=== PATIENT | male | born 1965 | race Caucasian/White ===

== ENCOUNTER 2016-09-26 09:34 | Day surgery (SDC) | payer BC ==
[2016-09-23 13:40] VITALS: BMI 39.5
[~2016-09-26 09:34] MED LIST: LACTATED RINGERS 1,000 ML IV ONE; LIDOCAINE 1% 20 ML VIAL (10MG/ML) FOR IV START INTRADERMA PRN
[2016-09-26 10:35] VITALS: RESP 16; TEMP 97.1
[2016-09-26] MEDS ORDERED: LIDOCAINE 1% 20 ML VIAL (10MG/ML) FOR IV START INTRADERMA ONE (10:47)
[2016-09-26] MEDS ORDERED: PROPOFOL 10 MG/ML 20 ML VIAL IV ONE (11:04)
--- NOTE | 2016-09-26 11:39 | P.PCN ---
Date of Procedure: 09/26/16 Procedure(s) Performed: Procedure: Total colonoscopy. Preoperative diagnosis: Screening for neoplasia. Postoperative diagnosis: Sigmoid diverticulosis with no evidence of acute diverticulitis, strictures, polyps or cancer. Preparation: HalfLytely prep. Sedation: Was provided by anesthesia. Brief clinical history: The patient is a 51-year-old male who is referred for this evaluation for screening for neoplasia. He had a prior exam 12 years ago so. At this time, he has no abdominal complaints, bleeding or anemia. No family history of colon cancer. Procedure: With the patient on his left lateral decubitus position and after informed consent and adequate sedation, the perianal area was inspected and it did not show any fissures or fistulas. There were no masses felt on digital rectal examination. The Olympus CFQ 160L video colonoscope was then inserted in the rectum in the usual fashion and advanced to the cecum. There were multiple diverticular orifices seen scattered in the sigmoid but I saw no evidence of acute diverticulitis or strictures. No polyps or tumors were seen. The mucosa appeared healthy. I retroflexed endoscope in the rectum before the endoscope was withdrawn. The patient tolerated the procedure well. Plan: The patient was reassured discussed dietary measures. I recommended a repeat exam in 10 years. He will follow up with you as planned.
[2016-09-26 11:58] VITALS: BP 120/79; PULSE 76
== END 2016-09-26 12:28 | disposition home or self-care (01) ==
LOC: ORWHC2ENDO 09:34
DX: Z12.11 Encounter for screening for malignant neoplasm of colon (principal); K57.30 Diverticulosis of large intestine without perforation or abscess without bleeding; I25.10 Atherosclerotic heart disease of native coronary artery without angina pectoris; I10 Essential (primary) hypertension; E78.5 Hyperlipidemia, unspecified; Z79.899 Other long term (current) drug therapy
CPT/HCPCS: J2704; G0121; 99153

== ENCOUNTER 2017-01-03 10:48 | Day surgery (SDC) | payer BC ==
[2017-01-02 09:46] VITALS: BMI 40.2
[~2017-01-03 10:48] MED LIST changes: -LACTATED RINGERS 1,000 ML IV ONE; +LACTATED RINGERS 1,000 ML IV SCH
[2017-01-03 11:31] VITALS: TEMP 98
[2017-01-03] MEDS ORDERED: LIDOCAINE 1% 20 ML VIAL (10MG/ML) FOR IV START INTRADERMA ONE (11:43)
[2017-01-03] MEDS ORDERED: PROPOFOL 10 MG/ML 20 ML VIAL IV ONE (12:42)
[2017-01-03] MEDS ORDERED: KETAMINE 10 MG/ML 20 ML VIAL ONE (12:42)
[2017-01-03] MEDS ORDERED: LIDOCAINE 1% INJ 10MG/ML (20 ML MDV) ONE (12:42)
[2017-01-03] MEDS ORDERED: GLYCOPYRROLATE 0.2 MG/ML 2 ML VIAL ONE (12:42)
--- NOTE | 2017-01-03 13:19 | P.PCN ---
Date of Procedure: 01/03/17 Procedure(s) Performed: Procedure: Esophagogastroduodenoscopy and biopsy. Preoperative diagnosis: Epigastric pain and reflux. Postoperative diagnosis: Mild antral gastritis. Preparation and sedation: Was provided by anesthesia. Brief clinical history: The patient is a 51-year-old male was referred for this evaluation for epigastric pain and reflux symptoms that he has had over the last year more so within the last few months without complete response to medical therapy. This evaluation is to assess for peptic ulcer disease, complicated reflux disease or other pathology. Procedure: With the patient on his left lateral decubitus position and after informed consent and adequate sedation, I passed the Olympus-GIF 160 video upper endoscope through the cricopharyngeus down the esophagus. GE junction was around 42-43 cm from the incisors and there was no definite hiatal hernia. No obvious esophagitis or complicated reflux disease. The endoscope was then passed into the stomach which was insufflated with air and inspected in detail including the retroflex view in the cardia. There was some mottling and erythema in the antrum but no ulcers or erosions. Pyloric channel, duodenal bulb, post bulbar area and descending duodenum appeared within normal limits. I obtained multiple biopsies from the duodenum, antrum and esophagus then the endoscope was withdrawn. The patient tolerated the procedure well. Plan: The patient was reassured. Will await pathology results. He will follow up with you as planned and I will be happy to see in the office if his symptoms persist.
[2017-01-03 13:27] VITALS: BP 110/71; PULSE 56; RESP 18
== END 2017-01-03 14:02 | disposition home or self-care (01) ==
LOC: ORWHC2ENDO 10:48
DX: K29.50 Unspecified chronic gastritis without bleeding (principal); K21.0 Gastro-esophageal reflux disease with esophagitis; I25.10 Atherosclerotic heart disease of native coronary artery without angina pectoris; I10 Essential (primary) hypertension; E78.5 Hyperlipidemia, unspecified; Z79.82 Long term (current) use of aspirin; Z79.899 Other long term (current) drug therapy
CPT/HCPCS: 88305; 88342; 43239; J2001; J2704

== ENCOUNTER → 2018-10-01 | Outpatient (CLI) | payer BC ==
--- NOTE | 2018-10-01 16:36 | XR ---
EXAMINATION TYPE: XR lumbosacral spine min 5 views, XR sacrum coccyx 3 views DATE OF EXAM: 10/01/2018 COMPARISON: NONE HISTORY: 53-year-old male low back pain with left leg radiculopathy FINDINGS: 5 lumbar type vertebral bodies. No pars interarticularis defect. Mild to moderate endplate spondylosi s upper lumbar spine. Mild multilevel facet arthropathy. Vertebral body heights are preserved and ali gnment is maintained. Slight bony irregularity just above the distal coccygeal segments. No angulation or displacement frac ture is identified. SI joints appear symmetric and intact. Small delineation to the arcuate lines of the sacrum. IMPRESSION: 1. Lumbar spine: Mild to moderate endplate spondylosis upper lumbar spine. Mild facet arthropathy. No vertebral compression collapse or malalignment. 2. Sacrum and coccyx: Cortical irregularity just above the last couple coccygeal segments could repre sent an age indeterminate nondisplaced tailbone fracture. Clinically correlate.
== END | disposition home or self-care (01) ==
LOC: RADXRYALE 14:27
PROVIDERS: ATTEND Nurse Practitioner
DX: M47.26 Other spondylosis with radiculopathy, lumbar region (principal); M46.96 Unspecified inflammatory spondylopathy, lumbar region; R93.7 Abnormal findings on diagnostic imaging of other parts of musculoskeletal system
CPT/HCPCS: 72110; 72220

== ENCOUNTER → 2018-11-06 | Outpatient (CLI) | payer BC ==
--- NOTE | 2018-11-06 10:39 | US ---
EXAMINATION TYPE: US abdomen complete DATE OF EXAM: 11/06/2018 COMPARISON: NONE CLINICAL HISTORY: R10.12 Left upper quadrant pain. Left side pain, NPO, no previous surgeries EXAM MEASUREMENTS: Liver Length: 18.0 cm Gallbladder Wall: 0.3 cm CHD: 0.4 cm Spleen: 10.1 cm Right Kidney: 11.2 x 5.7 x 5.5 cm Left Kidney: 10.7 x 4.6 x 6.1 cm Limited/suboptimal visualization due to patient body habitus and overlying bowel gas Pancreas: Obscured by bowel gas Liver: Heterogenous. Limited visualization. Gallbladder: No stones seen Evidence for sonographic Burt's sign: neg CBD: Obscured by overlying bowel gas CHD: wnl Spleen: wnl Right Kidney: No hydronephrosis or masses seen, limited visualization Left Kidney: No hydronephrosis or masses seen, limited visualization, lower pole not well seen Upper IVC: wnl Abd Aorta: No AAA visualized The visualized liver is heterogeneous. Evaluation for focal masses suboptimal due to the heterogeneit y. The intrahepatic portion of the IVC and visualized abdominal aorta are within normal limits. Ther e is no evidence of cholelithiasis. Common bile duct is unremarkable. The visualized portions of th e pancreas are slightly heterogeneous. Portions of pancreas are secured by overlying bowel gas on deangelo ges saved. The spleen is unremarkable. Kidneys are symmetric and free of hydronephrosis. No renal l esions are seen. IMPRESSION: Suboptimal study without suspicious finding seen to account for patient's symptoms of lef t upper quadrant pain.
== END | disposition home or self-care (01) ==
LOC: RADUSWWP 07:20
PROVIDERS: ATTEND Family Medicine
DX: R10.12 Left upper quadrant pain (principal)
CPT/HCPCS: 76700

== ENCOUNTER → 2019-05-20 | Outpatient (CLI) | payer BC ==
--- NOTE | 2019-05-20 09:08 | FL ---
EXAMINATION TYPE: FL barium swallow DATE OF EXAM: 05/20/2019 CLINICAL HISTORY: Trouble swallowing last 3-4 months. Increasing dysphasia and lower esophageal level per patient. Some improvement on reflux medications. TECHNIQUE: A double contrast esophagram is performed utilizing air and barium. A total of 24 second s of fluoroscopic time was utilized during procedure. 43 spot images are saved to PACS. COMPARISON: None FINDINGS: The esophagus shows normal motility and emptying into the stomach. No evidence of divertic ulum, intraluminal mass, or stricture noted. Small sliding-type hiatal hernia noted towards the end o f study. No significant gastroesophageal reflux was seen during real time performance of this study. IMPRESSION: Small sliding-type hiatal hernia. No suspicious mass or stricture.
--- NOTE | 2019-05-20 15:33 | US ---
EXAMINATION TYPE: US abdomen complete DATE OF EXAM: 05/20/2019 COMPARISON: Complete abdominal ultrasound November 06, 2018 CLINICAL HISTORY: R10.13 Epigastric Pain. Pain EXAM MEASUREMENTS: Liver Length: 19.5 cm Gallbladder Wall: 0.3 cm CBD: 0.3 cm Spleen: 10.2 cm Right Kidney: 10.0 x 4.5 x 4.5 cm Left Kidney: 9.2 x 5.0 x 4.4 cm Exam limitations due to body habitus. Pancreas: Obscured by bowel gas Liver: Increased attenuation Gallbladder: No stones seen Evidence for sonographic Burt's sign: No CBD: wnl Spleen: wnl Right Kidney: wnl Left Kidney: wnl Upper IVC: wnl Abd Aorta: Limited The visualized liver is heterogeneously hyperechoic similar to prior. Findings consistent with diffu se fatty infiltration. The intrahepatic portion of the IVC and visualized abdominal aorta are within normal limits. There is no evidence of shadowing mobile cholelithiasis. Common bile duct is unremar kable. The pancreas is suboptimally seen on initial images saved due to shadowing from overlying bow el gas. The spleen is unremarkable. Kidneys are symmetric and free of hydronephrosis. No renal les ions are seen. IMPRESSION: Diffuse fatty infiltration of liver redemonstrated. Suboptimal study without new or acute findings seen to account for patient's symptoms of epigastric pain.
== END | disposition home or self-care (01) ==
LOC: RADUSWWP 07:33
PROVIDERS: ATTEND Family Medicine
DX: K76.0 Fatty (change of) liver, not elsewhere classified (principal); K44.9 Diaphragmatic hernia without obstruction or gangrene
CPT/HCPCS: 74220; 76700

== ENCOUNTER 2020-11-26 15:49 | Observation (INO) | payer BC ==
[2020-11-26] MEDS ORDERED: SODIUM CHLORIDE 0.9% 1,000 ML IV STA (16:39)
[2020-11-26] MEDS ORDERED: SODIUM CHLORIDE 0.9% 500 ML 500 ML IV STA (16:39)
[2020-11-26 17:02] LABS: Basophils # (A) 0.1 k/uL (0-0.2); Basophils % (A) 1 %; Eosinophils # (A) 0.5 k/uL (0-0.7); Eosinophils % (A) 4 %; HCT 45.6 % (39.0-53.0); HGB 15.4 gm/dL (13.0-17.5); Lymphocytes # (A) 2.1 k/uL (1.0-4.8); Lymphocytes % (A) 15 %; MCH 31.6 pg (25.0-35.0); MCHC 33.8 g/dL (31.0-37.0); MCV 93.5 fL (80.0-100.0); Mean Platelet Volume 6.5; Monocytes # (A) 1.2 k/uL (0-1.0); Monocytes % (A) 8 %; Neutrophils # (A) 9.9 k/uL (1.3-7.7); Neutrophils % (A) 71 %; Platelet Count 320 k/uL (150-450); RBC 4.87 m/uL (4.30-5.90); RDW 13.1 % (11.5-15.5)
[2020-11-26 17:11] LABS: Appearance,Urine Clear (Clear); Bilirubin,Urine Negative (Negative); Blood,Urine Negative (Negative); Color,Urine Light Yellow; Glucose,Urine (UA) Negative (Negative); Ketones,Urine Negative (Negative); Leukocyte Esterase,Urine Negative (Negative); Nitrite,Urine Negative (Negative); PH, Urine 6.5 (5.0-8.0); Protein,Urine Negative (Negative); Specific Gravity,Urine 1.006 (1.001-1.035); Urobilinogen,Urine <2.0 mg/dL (<2.0)
[2020-11-26 17:18] LABS: ALT 36 U/L (4-49); AST 26 U/L (17-59); African American GFR (CKD) >90 (>60 ml/min/1.73 sqM); Alkaline Phosphatase 89 U/L (38-126); Anion Gap 6 mmol/L; Blood Urea Nitrogen 19 mg/dL (9-20); Calcium 9.6 mg/dL (8.4-10.2); Carbon Dioxide 30 mmol/L (22-30); Chloride 103 mmol/L (98-107); Glucose 109 mg/dL (74-99); Magnesium 1.8 mg/dL (1.6-2.3); Non-African American GFR(CKD) >90 (>60 ml/min/1.73 sqM); Potassium 4.1 mmol/L (3.5-5.1); Sodium 139 mmol/L (137-145); Total Bilirubin 0.4 mg/dL (0.2-1.3); Total Protein 6.8 g/dL (6.3-8.2)
[2020-11-26 17:21] LABS: INR 0.9 (<1.2); Partial Thromboplastin Time 21.9 sec (22.0-30.0); Prothrombin Time 9.8 sec (9.0-12.0)
--- NOTE | 2020-11-26 17:22 | XR ---
EXAMINATION TYPE: XR chest 2V DATE OF EXAM: 11/26/2020 COMPARISON: 12/02/2013 HISTORY: The TECHNIQUE: 2 views FINDINGS: Heart and mediastinum are normal. Lungs are clear. Diaphragm is normal. Bony thorax appears normal. IMPRESSION: Normal chest. No change
[2020-11-26] MEDS ORDERED: ASPIRIN 81 MG PO STA (17:45)
[2020-11-26] MEDS ORDERED: NITROGLYCERIN SL TABS 0.4 MG TAB SUBLINGUAL PRN (17:54)
[2020-11-26] MEDS ORDERED: HEPARIN SODIUM,PORCINE 5,000 UNIT/ML 1 ML VIAL IV ONE ×2 (17:55→21:08)
[2020-11-26] MEDS ORDERED: HEPARIN SODIUM,PORCINE 5,000 UNIT/ML 1 ML VIAL IV PRN ×2 (17:55→21:08)
--- NOTE | 2020-11-26 17:56 | ED ---
General Adult HPI - General Chief complaint: Anxiety Stated complaint: Syncope Time Seen by Provider: 11/26/20 16:20 Source: EMS Mode of arrival: EMS Limitations: no limitations - History of Present Illness Initial comments: 55-year-old male with history of anxiety, heart disease without stent, hypertension presents emergency current today for chief complaint of "anxiety" patient states that this morning he was feeling normal however once she was in the shower around 2:30 PM his heartbeat can racing and he felt lightheaded he thought he was going to pass out. Patient states he left the shower and took a nitroglycerin he states he did not have any chest pain but thought it might help. Patient denies any shortness of breath and jaw pain and arm pain patient denies any history of atrial fibrillation aneurysms he denies any previous TIAs or CVAs he denies IV drug use arteries calf pain swelling recent injury or mobilization he denies any cough or fevers he denies a personal history of DVT or pulmonary embolism he denies any bleeding diathesis or coagulation disorders. Patient denies hemoptysis or hormone use. Patient has states he feels fine now. Patient states he has had these "anxiety attacks before". Pt denies bloody or dark stools, headaches visual changes localized weakness or sensation deficits. Patient appears well nontoxic, nondiaphoretic on arrival. - Related Data Home Medications Medication Instructions Recorded Confirmed Atorvastatin Calcium [Lipitor] 10 mg PO HS 09/23/16 11/26/20 Nitroglycerin Sl Tabs [Nitrostat] 0.4 mg SUBLINGUAL Q5M PRN 09/23/16 11/26/20 lisinopriL [Prinivil] 20 mg PO DAILY 09/23/16 11/26/20 Aspirin 81 mg PO DAILY 01/02/17 11/26/20 atenoloL [Atenolol] 12.5 mg PO DAILY 11/26/20 11/26/20 Allergies Allergy/AdvReac Type Severity Reaction Status Date / Time No Known Allergies Allergy Verified 11/26/20 17:26 Review of Systems ROS Statement: Those systems with pertinent positive or pertinent negative responses have been documented in the HPI. ROS Other: All systems not noted in ROS Statement are negative. Past Medical History Past Medical History: Coronary Artery Disease (CAD), Chest Pain / Angina, GERD/R eflux, Hearing Disorder / Deafness, Hyperlipidemia, Hypertension, Liver Disease Additional Past Medical History / Comment(s): Pancreatitis. Hx of "fatty liver".Hx of 40% blockage of Coronary artery per CT scan. History of Any Multi-Drug Resistant Organisms: None Reported Past Surgical History: Back Surgery Past Anesthesia/Blood Transfusion Reactions: No Reported Reaction Past Psychological History: Anxiety Smoking Status: Never smoker Past Alcohol Use History: None Reported Past Drug Use History: None Reported - Past Family History Mother Family Medical History: Pulmonary Embolus Brother(s) Family Medical History: Cancer Additional Family Medical History / Comment(s): Skin CA. General Exam - General Exam Comments Initial Comments: General: The patient is awake and alert, in no distress Eye: +3 mm pupils are equal, round and reactive to light, extra-ocular movements are intact. No nystagmus. There is normal conjunctiva bilaterally. No signs of icterus. Ears, nose, mouth and throat: There are moist mucous membranes and no oral lesions. Neck: The neck is supple, there is no tenderness or JVD. Cardiovascular: There is a regular rate and rhythm. No murmur, rub or gallop is appreciated. Respiratory: Lungs are clear to auscultation, respirations are non-labored, breath sounds are equal. No wheezes, stridor, rales, or rhonchi. Gastrointestinal: Soft, non-distended, non-tender abdomen without masses or organomegaly noted. There is no rebound or guarding present Musculoskeletal: Normal ROM, no tenderness. Strength 5/5. Sensation intact. Radial and DP pulses equal bilaterally 2+. Neurological: A&O x 3. CN II-XII intact, There are no obvious motor or sensory deficits. Coordination appears grossly intact. Speech is normal. Skin: Skin is warm and dry and no rashes or lesions are noted. No LE edema or calf pain Psychiatric: Cooperative, appropriate mood & affect, normal judgment. Limitations: no limitations Course Vital Signs 11/26/20 11/26/20 15:56 18:00 Temperature 97.6 F Pulse Rate 68 73 Respiratory 20 20 Rate Blood Pressure 129/78 130/79 O2 Sat by Pulse 98 99 Oximetry - Reevaluation(s) Reevaluation #1: PERC (-) Medical Decision Making - Medical Decision Making Elevated troponin and mild leukocytosis otherwise lab stable. Chest x-ray within acceptable limits. Patient is currently asymptomatic. EKG no ST elevation or depression appreciated. Patient will be admitted for serial troponins cardiology consultation. Initially heparin was going to be initiated after discussing case by attending provider however patient states he did have rectal bleeding this morning orders were cancelled after shared decision making was utilized with Sarthak Shaffer the accepting admitting provider. Patient resting comfortably, no changes on repeat EKG. Patient agreeable to admission. Dr Haywood agreeable to care plan. - Lab Data Result diagrams: 11/26/20 16:50 11/26/20 16:50 Lab Results 11/26/20 11/26/20 11/26/20 Range/Units 16:50 16:50 16:50 WBC 14.0 H (3.8-10.6) k/uL RBC 4.87 (4.30-5.90) m/uL Hgb 15.4 (13.0-17.5) gm/dL Hct 45.6 (39.0-53.0) % MCV 93.5 (80.0-100.0) fL MCH 31.6 (25.0-35.0) pg MCHC 33.8 (31.0-37.0) g/dL RDW 13.1 (11.5-15.5) % Plt Count 320 (150-450) k/uL MPV 6.5 Neutrophils % 71 % Lymphocytes % 15 % Monocytes % 8 % Eosinophils % 4 % Basophils % 1 % Neutrophils # 9.9 H (1.3-7.7) k/uL Lymphocytes # 2.1 (1.0-4.8) k/uL Monocytes # 1.2 H (0-1.0) k/uL Eosinophils # 0.5 (0-0.7) k/uL Basophils # 0.1 (0-0.2) k/uL PT 9.8 (9.0-12.0) sec INR 0.9 (<1.2) APTT 21.9 L (22.0-30.0) sec Sodium (137-145) mmol/L Potassium (3.5-5.1) mmol/L Chloride (98-107) mmol/L Carbon Dioxide (22-30) mmol/L Anion Gap mmol/L BUN (9-20) mg/dL Creatinine (0.66-1.25) mg/dL Est GFR (CKD-EPI)AfAm (>60 ml/min/1.73 sqM) Est GFR (CKD-EPI)NonAf (>60 ml/min/1.73 sqM) Glucose (74-99) mg/dL Calcium (8.4-10.2) mg/dL Magnesium (1.6-2.3) mg/dL Total Bilirubin (0.2-1.3) mg/dL AST (17-59) U/L ALT (4-49) U/L Alkaline Phosphatase (38-126) U/L Troponin I (0.000-0.034) ng/mL Total Protein (6.3-8.2) g/dL Albumin (3.5-5.0) g/dL Urine Color Light Yellow Urine Appearance Clear (Clear) Urine pH 6.5 (5.0-8.0) Ur Specific [place] 1.006 (1.001-1.035) Urine Protein Negative (Negative) Urine Glucose (UA) Negative (Negative) Urine Ketones Negative (Negative) Urine Blood Negative (Negative) Urine Nitrite Negative (Negative) Urine Bilirubin Negative (Negative) Urine Urobilinogen <2.0 (<2.0) mg/dL Ur Leukocyte Esterase Negative (Negative) 11/26/20 11/26/20 Range/Units 16:50 16:50 WBC (3.8-10.6) k/uL RBC (4.30-5.90) m/uL Hgb (13.0-17.5) gm/dL Hct (39.0-53.0) % MCV (80.0-100.0) fL MCH (25.0-35.0) pg MCHC (31.0-37.0) g/dL RDW (11.5-15.5) % Plt Count (150-450) k/uL MPV Neutrophils % % Lymphocytes % % Monocytes % % Eosinophils % % Basophils % % Neutrophils # (1.3-7.7) k/uL Lymphocytes # (1.0-4.8) k/uL Monocytes # (0-1.0) k/uL Eosinophils # (0-0.7) k/uL Basophils # (0-0.2) k/uL PT (9.0-12.0) sec INR (<1.2) APTT (22.0-30.0) sec Sodium 139 (137-145) mmol/L Potassium 4.1 (3.5-5.1) mmol/L Chloride 103 (98-107) mmol/L Carbon Dioxide 30 (22-30) mmol/L Anion Gap 6 mmol/L BUN 19 (9-20) mg/dL Creatinine 0.90 (0.66-1.25) mg/dL Est GFR (CKD-EPI)AfAm >90 (>60 ml/min/1.73 sqM) Est GFR (CKD-EPI)NonAf >90 (>60 ml/min/1.73 sqM) Glucose 109 H (74-99) mg/dL Calcium 9.6 (8.4-10.2) mg/dL Magnesium 1.8 (1.6-2.3) mg/dL Total Bilirubin 0.4 (0.2-1.3) mg/dL AST 26 (17-59) U/L ALT 36 (4-49) U/L Alkaline Phosphatase 89 (38-126) U/L Troponin I 0.055 H* (0.000-0.034) ng/mL Total Protein 6.8 (6.3-8.2) g/dL Albumin 4.0 (3.5-5.0) g/dL Urine Color Urine Appearance (Clear) Urine pH (5.0-8.0) Ur Specific [place] (1.001-1.035) Urine Protein (Negative) Urine Glucose (UA) (Negative) Urine Ketones (Negative) Urine Blood (Negative) Urine Nitrite (Negative) Urine Bilirubin (Negative) Urine Urobilinogen (<2.0) mg/dL Ur Leukocyte Esterase (Negative) Disposition Clinical Impression: Pre-syncope, Troponin level elevated Disposition: ADMITTED IP TO THIS [facility] Condition: Stable Is patient prescribed a controlled substance at d/c from ED?: No Time of Disposition: 19:34 Decision to Admit Reason: Admit from EC Decision Date: 11/26/20 Decision Time: 19:34
[2020-11-26] MEDS ORDERED: HEPARIN SOD,PORK IN 0.45% NACL 25,000 UNIT in 0.45% NACL 1 250ML.BAG IV SCH ×2 (18:00→21:15)
[2020-11-27 03:44] LABS: Basophils # (A) 0.1 k/uL (0-0.2); Basophils % (A) 1 %; Eosinophils # (A) 0.5 k/uL (0-0.7); Eosinophils % (A) 4 %; HCT 44.3 % (39.0-53.0); HGB 14.6 gm/dL (13.0-17.5); Lymphocytes # (A) 3.4 k/uL (1.0-4.8); Lymphocytes % (A) 25 %; MCHC 32.8 g/dL (31.0-37.0); MCV 94.4 fL (80.0-100.0); Mean Platelet Volume 6.5; Monocytes # (A) 1.1 k/uL (0-1.0); Monocytes % (A) 8 %; Neutrophils # (A) 8.1 k/uL (1.3-7.7); Neutrophils % (A) 60 %; Platelet Count 291 k/uL (150-450); RDW 13.1 % (11.5-15.5); WBC 13.4 k/uL (3.8-10.6)
[2020-11-27 04:05] LABS: Cholesterol 130 mg/dL (<200); HDL Cholesterol 44 mg/dL (40-60); LDL Cholesterol,Calculated 67 mg/dL (0-99); Triglycerides 93 mg/dL (<150)
[2020-11-27] MEDS ORDERED: HEPARIN SODIUM,PORCINE 2,500 UNIT in SODIUM CHLORIDE 0.9% 250 ML IRRIGATION PRN (07:00)
[2020-11-27 08:50] VITALS: RESP 18
[2020-11-27] MEDS ORDERED: ASPIRIN 325 MG TAB PO STA (08:52)
[2020-11-27] MEDS ORDERED: ATORVASTATIN 80 MG TAB PO STA (08:52)
[2020-11-27] MEDS ORDERED: ALPRAZolam 0.5 MG TAB PO PRN (08:52)
[2020-11-27] MEDS ORDERED: SODIUM CHLORIDE 0.9% 1,000 ML in EMPTY BAG 1 BAG IV ONE (08:52)
[2020-11-27] MEDS ORDERED: ALPRAZolam 0.25 MG TAB PO PRN (08:52)
[2020-11-27] MEDS ORDERED: METOPROLOL TARTRATE 25 MG TAB PO SCH (09:00)
[2020-11-27] MEDS ORDERED: SODIUM CHLORIDE 0.9% 1,000 ML IV SCH (09:00)
[2020-11-27] MEDS ORDERED: ATORVASTATIN 80 MG TAB PO SCH (09:00)
[2020-11-27] MEDS ORDERED: ASPIRIN 325 MG TAB PO SCH (09:00)
[2020-11-27] MEDS ORDERED: VERAPAMIL 2.5 MG/ML 2 ML AMP ONE (09:19)
[2020-11-27] MEDS ORDERED: LIDOCAINE 1% INJ 10MG/ML (20 ML MDV) ONE (09:19)
[2020-11-27] MEDS ORDERED: HEPARIN SODIUM 1,000 UN/ML (10ML VL) ONE (09:19)
[2020-11-27] MEDS ORDERED: IV FLUID CONTINUATION 450 ML IV ONE (09:20)
[2020-11-27] MEDS ORDERED: MIDAZOLAM 2 MG/2 ML VIAL IV ONE (09:38)
[2020-11-27] MEDS ORDERED: LIDOCAINE 1% INJ 10MG/ML (20 ML MDV) SQ ONE (09:39)
[2020-11-27] MEDS ORDERED: VERAPAMIL SYRINGE (5 MG/10 ML) INTRAARTER ONE ×2 (09:42→09:57)
[2020-11-27] MEDS ORDERED: HEPARIN SODIUM 1,000 UN/ML (10ML VL) IV ONE (09:45)
[2020-11-27] MEDS ORDERED: IOPAMIDOL-370 100ML BTL INJ ONE (09:56)
--- NOTE | 2020-11-27 10:51 | CONS ---
CONSULTATION This is 55-year-old obese gentleman who weighs over 300 pounds. He has history of hypertension, hyperlipidemia, and apparently had a CAT scan that showed a 30% to 35% disease in the coronary. Details unavailable and this was probably a CT angio. 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 His primary care physician is Dr. Maldonado. He came into the hospital because he had a bout of really strong palpitations with the heart racing quite fast when he came out of the shower yesterday afternoon. By the time he got to the ER, he was in sinus rhythm with unremarkable EKG. There is mild elevation of troponin suggestive of non-ST elevation [place]. No further chest pain. He is resting comfortably. He has history of hypertension, hyperlipidemia, calcified coronaries, obesity. He has had no previous surgeries and no allergies. PAST MEDICAL HISTORY: 1. Hypertension. 2. Hyperlipidemia. 3. History of prior CT angio details unavailable. MEDICATIONS: Medications at home include atenolol 12.5 mg daily, lisinopril 20 mg daily, atorvastatin 10 mg daily. CORONARY RISK FACTORS: The patient is not a smoker. He has hypertension, hyperlipidemia, has no family history of premature CAD and he is not a smoker. PHYSICAL EXAMINATION: On examination, blood pressure is 130/70, pulse rate is about 88 per minute. HEENT: Unremarkable. Fundus was not examined by me. Neck is supple. There is no JVD. I do not hear a carotid bruit. Heart exam reveals S1, S2 heard normally. No rub, murmur or gallop. Lungs reveals bilateral decent air entry. Abdomen is soft, nontender. Lower extremities reveal normal pulses. No edema. Central nervous system is normal. EKG revealed sinus mechanism, no acute changes. LABORATORY DATA: Laboratory data revealed mild troponin elevation of up to 0.10 and initial one was 0.07. IMPRESSION: 1. Acute episode of palpitations. No documented arrhythmia by the time he got to the ER. 2. Non-ST elevation myocardial infarction. 3. Chest pain, suggestive of angina. 4. Obesity. 5. Hypertension. 6. Hyperlipidemia. RECOMMENDATION: I recommended coronary angiography, explained to him the rationale, risks, benefits, options, and the patient understands all details and wishes to proceed with the procedure. MMODL / IJN: [id number] /
--- NOTE | 2020-11-27 10:59 | CC ---
CARDIAC CATHETERIZATION REPORT DATE OF SERVICE: 11/27/2020. PROCEDURE: Left heart catheterization, coronary angiography, and left ventriculography. PERFORMED BY: Dr. Malaika Pa. Moderate conscious sedation time was 20 minutes. Patient was administered Versed. Oxygen saturation, hemodynamics and EKG were monitored closely. CLINICAL INFORMATION: Mr. Nickolas Corbett is a 55-year-old gentleman with obesity, hypertension, and hyperlipidemia came into the hospital, palpitations, chest pain and had a mild troponin elevation. He was advised cardiac catheterization after due discussion regarding risks, benefits, and options. PROCEDURE NOTE: Under local anesthesia and strict aseptic precautions, a 6-Green[place] introducer was placed in the right radial artery. Using a JL3.5 and JR4 catheters I performed coronary angiography. The pigtail catheter was used to check LV pressures. LV gram was performed in 30-degree GIANG projection. The patient tolerated the procedure well. The sheath was taken out and TR band applied as per protocol and saturation in the fingers of the right hand was more than 95%. The patient received about 2500 units of heparin, but he was already on a heparin drip just before he came to the laborer pipeline. Moderate conscious sedation time was 20 minutes. Patient was administered Versed. Oxygen saturation, hemodynamics and EKG were monitored closely. CARDIAC CATHETERIZATION FINDINGS: The left ventricular end-diastolic pressure was about 7 mmHg. There was no gradient across the aortic valve. CORONARY ANGIOGRAPHY FINDINGS: RIGHT CORONARY ARTERY: Technically dominant vessel has mild to moderate calcification. No significant disease. Minor irregularities. Distally, it bifurcates into PDA and PLV, both of which supply a sizable amount of myocardium. There is mild calcification, but no significant disease in the dominant RCA. LEFT MAIN CORONARY ARTERY: Short patent vessel free of significant disease. Bifurcates into LAD and circumflex. LEFT ANTERIOR DESCENDING CORONARY ARTERY: Good caliber vessel extends along the antral wall, gives off 2 good-sized diagonal branches runs all the way to the apex supplying a sizable amount of myocardium. There is moderate calcification noted, but no significant obstructive disease. LEFT POSTERIOR CIRCUMFLEX CORONARY ARTERY: Technically a nondominant vessel, has minor irregularities and gives off a small diffusely diseased obtuse marginal laterally and then runs distally as a continuation of the posterolateral or an obtuse marginal branch. No significant disease. Circumflex therefore has a small OM that seems to be small in caliber with some diffuse disease, but the rest of the circumflex is small in caliber and distribution, but no significant disease. LEFT VENTRICULOGRAM: This was performed in 30-degree GIANG projection. There was some ventricular ectopy, but ejection fraction is more than 55% without mitral regurgitation. FINAL IMPRESSION: This patient has a right dominant system, normal filling pressures. No gradient across the aortic valve. There is moderate calcification of the coronary arteries, but no significant obstructive coronary artery disease. Left ventricular systolic function is normal. There was a lot of ectopy during the left ventriculogram, but ejection fraction is more than 55%. RECOMMENDATION: Findings were discussed with the patient as well as talked to his . I am recommending continued medical therapy. We will increase the Lipitor to 40 mg daily, metoprolol tartrate will be 25 mg b.i.d., lisinopril will be 10 mg daily[address] I will place an event monitor for 4 weeks and discharge him later today and I will see him in the office next Monday or for a followup visit. He will be seen by my nurse practitioner. MMODL / IJN: [id number] /
[2020-11-27 11:42] VITALS: BP 134/83; PULSE 69; TEMP 97.6
--- NOTE | 2020-11-27 14:18 | P.HPIM ---
History of Present Illness Patient presents for 55-year-old male came came to the hospital with compensative lightheadedness denied any significant chest pain denied any shortness of breath. Patient is found to have elevated troponin which she was was an upward trend because of which patient underwent cardiac catheterization which did not show any significant coronary artery disease, had an normal ejection fraction. Patient felt his heart is racing checked his pulse oximetry found to have heart rate in 150s. Review of Systems REVIEW OF SYSTEMS: CONSTITUTIONAL: No fever, no malaise, no fatigue. HEENT: No recent visual problems or hearing problems. Denied any sore throat. CARDIOVASCULAR: No chest pain, orthopnea, PND, no syncope. PULMONARY: No shortness of breath, no cough, no hemoptysis. GASTROINTESTINAL: No diarrhea, no nausea, no vomiting, no abdominal pain. NEUROLOGICAL: No headaches, no weakness, no numbness. HEMATOLOGICAL: Denies any bleeding or petechiae. GENITOURINARY: Denies any burning micturition, frequency, or urgency. MUSCULOSKELETAL/RHEUMATOLOGICAL: Denies any joint pain, swelling, or any muscle pain. ENDOCRINE: Denies any polyuria or polydipsia. The rest of the 14-point review of systems is negative. Past Medical History Past Medical History: Coronary Artery Disease (CAD), Chest Pain / Angina, GERD/Reflux, Hearing Disorder / Deafness, Hyperlipidemia, Hypertension, Liver Disease Additional Past Medical History / Comment(s): Pancreatitis. Hx of "fatty liver".Hx of 40% blockage of Coronary artery per CT scan. History of Any Multi-Drug Resistant Organisms: None Reported Past Surgical History: Back Surgery Past Anesthesia/Blood Transfusion Reactions: No Reported Reaction Past Psychological History: Anxiety Smoking Status: Never smoker Past Alcohol Use History: None Reported Past Drug Use History: None Reported - Past Family History Mother Family Medical History: Pulmonary Embolus Additional Family Medical History / Comment(s): fatty liver Brother(s) Family Medical History: Cancer Additional Family Medical History / Comment(s): Skin CA. Medications and Allergies Home Medications Medication Instructions Recorded Confirmed Type Nitroglycerin Sl Tabs [Nitrostat] 0.4 mg SUBLINGUAL Q5M PRN 09/23/16 11/26/20 History Aspirin 81 mg PO DAILY #90 tab 11/27/20 Rx Atorvastatin [Lipitor] 40 mg PO DAILY #90 tab 11/27/20 Rx Metoprolol Tartrate [Lopressor] 25 mg PO BID #180 tab 11/27/20 Rx lisinopriL [Zestril] 10 mg PO DAILY #90 tab 11/27/20 Rx Allergies Allergy/AdvReac Type Severity Reaction Status Date / Time No Known Allergies Allergy Verified 11/26/20 17:26 Physical Exam Vitals: Vital Signs Temp Pulse Pulse Pulse Resp BP BP 11/27/20 11:41 97.6 F 69 18 134/83 11/27/20 08:00 97.9 F 70 63 18 133/78 11/27/20 04:00 97.9 F 68 17 110/57 11/27/20 02:00 58 L 17 11/27/20 00:00 97.8 F 58 L 17 153/67 11/26/20 22:45 98.8 F 70 18 131/75 11/26/20 20:06 65 20 129/79 11/26/20 19:57 97.8 F 58 L 17 153/67 11/26/20 18:00 73 20 130/79 11/26/20 15:56 97.6 F 68 20 129/78 Pulse Ox 11/27/20 11:41 94 L 11/27/20 08:00 96 11/27/20 04:00 96 11/27/20 02:00 11/27/20 00:00 98 11/26/20 22:45 98 11/26/20 20:06 99 11/26/20 19:57 98 11/26/20 18:00 99 11/26/20 15:56 98 Intake and Output 11/26/20 11/27/20 11/27/20 22:59 06:59 14:59 Intake Total 70.242 100 Balance 70.242 100 Intake: IV 100 Intake, IV Titration 70.242 Amount Heparin Sod,Pork in 0.45% 70.242 NaCl 25,000 unit In 0.45 % NaCl 1 250ml.bag @ 6.99 UNITS/KG/HR 9.987 mls/hr IV .Q24H [facility] Rx#: [id number] Other: # Voids 1 1 Weight 142.882 kg 145.6 kg PHYSICAL EXAMINATION: GENERAL: The patient is alert and oriented x3, not in any acute distress. Obese HEENT: Pupils are round and equally reacting to light. EOMI. No scleral icterus. No conjunctival pallor. Normocephalic, atraumatic. No pharyngeal erythema. No thyromegaly. CARDIOVASCULAR: S1 and S2 present. No murmurs, rubs, or gallops. PULMONARY: Chest is clear to auscultation, no wheezing or crackles. ABDOMEN: Soft, nontender, nondistended, normoactive bowel sounds. No palpable organomegaly. MUSCULOSKELETAL: No joint swelling or deformity. EXTREMITIES: No cyanosis, clubbing, or pedal edema. NEUROLOGICAL: Gross neurological examination did not reveal any focal deficits. SKIN: No rashes. Results CBC & Chem 7: 11/27/20 03:15 11/26/20 16:50 Labs: Abnormal Lab Results - Last 24 Hours (Table) 11/26/20 11/26/20 11/26/20 Range/Units 16:50 16:50 16:50 WBC 14.0 H (3.8-10.6) k/uL Neutrophils # 9.9 H (1.3-7.7) k/uL Monocytes # 1.2 H (0-1.0) k/uL APTT 21.9 L (22.0-30.0) sec Glucose 109 H (74-99) mg/dL Troponin I (0.000-0.034) ng/mL 11/26/20 11/26/20 11/26/20 Range/Units 16:50 19:45 23:10 WBC (3.8-10.6) k/uL Neutrophils # (1.3-7.7) k/uL Monocytes # (0-1.0) k/uL APTT (22.0-30.0) sec Glucose (74-99) mg/dL Troponin I 0.055 H* 0.104 H* 0.071 H* (0.000-0.034) ng/mL 11/27/20 11/27/20 Range/Units 03:15 03:15 WBC 13.4 H (3.8-10.6) k/uL Neutrophils # 8.1 H (1.3-7.7) k/uL Monocytes # 1.1 H (0-1.0) k/uL APTT 31.0 H (22.0-30.0) sec Glucose (74-99) mg/dL Troponin I (0.000-0.034) ng/mL Thrombosis Risk Factor Assmnt - Choose All That Apply Any of the Below Risk Factors Present?: Yes Each Factor Represents 1 point: Age 41-60 years, Obesity (BMI >25) Other Risk Factors: Yes Each Risk Factor Represents 3 Points: Family history of DVT/PE Other congenital or acquired thrombophilia - If yes, enter type in comment: No Thrombosis Risk Factor Assessment Total Risk Factor Score: 5 Thrombosis Risk Factor Assessment Level: High Risk Assessment and Plan Plan: -Lightheadedness: Probably secondary to heart rhythm abnormality patient will be discharged with an event monitor. Patient had normal ejection fraction. Patient was on 20 mg of lisinopril which was cut down to 10 mg patient blood pressure is low normal on admission. -Highly elevated troponin, patient had a cardiac catheterization which did not show any significant coronary artery disease. -Leukocytosis reactive in nature is no evidence of infection at this time -Hypertension patient will be discharged on same hypertensive medications except for decreasing the dose of lisinopril as mentioned above -Gastroesophageal reflux disease -Hyperlipidemia
--- NOTE | 2020-11-27 14:18 | P.DS ---
Providers Date of admission: 11/26/20 17:50 Attending physician: Carmen Gimenez Consults: 11/26/20 17:54 Consult Physician Urgent Consulting Provider: John Rowland Consult Reason/Comments: elevated troponin, presyncope Do you want consulting provider notified?: Yes Primary care physician: Maria Teresa Maldonado [facility] Hospital Course: Please review my history of present illness further details Patient Condition at Discharge: Stable Plan - Discharge Summary Discharge Rx Participant: No New Discharge Prescriptions: New Atorvastatin [Lipitor] 40 mg PO DAILY #90 tab Metoprolol Tartrate [Lopressor] 25 mg PO BID #180 tab lisinopriL [Zestril] 10 mg PO DAILY #90 tab Continue Nitroglycerin Sl Tabs [Nitrostat] 0.4 mg SUBLINGUAL Q5M PRN PRN Reason: Chest Pain Aspirin 81 mg PO DAILY #90 tab Discontinued lisinopriL [Prinivil] 20 mg PO DAILY Atorvastatin Calcium [Lipitor] 10 mg PO HS atenoloL [Atenolol] 12.5 mg PO DAILY Discharge Medication List Nitroglycerin Sl Tabs [Nitrostat] 0.4 mg SUBLINGUAL Q5M PRN 09/23/16 [History] Aspirin 81 mg PO DAILY #90 tab 11/27/20 [Rx] Atorvastatin [Lipitor] 40 mg PO DAILY #90 tab 11/27/20 [Rx] Metoprolol Tartrate [Lopressor] 25 mg PO BID #180 tab 11/27/20 [Rx] lisinopriL [Zestril] 10 mg PO DAILY #90 tab 11/27/20 [Rx] Follow up Appointment(s)/Referral(s): Pratik Pa MD [STAFF PHYSICIAN] - 12/03/20 10:15 am Maria Teresa Maldonado DO [Primary Care Provider] - 3 Days Patient Instructions/Handouts: Chest Pain (DC), Syncope (DC) Activity/Diet/Wound Care/Special Instructions: You will be set up with an event monitor through [facility]. They will call you for a time. You will be wearing this even monitor for 4 weeks in total. Discharge Disposition: HOME SELF-CARE
[2020-11-28] MEDS ORDERED: ASPIRIN 325 MG TAB PO SCH (09:00)
[2020-11-28] MEDS ORDERED: ASPIRIN 81 MG PO SCH (09:00)
[2020-11-28] MEDS ORDERED: lisinopriL 10 MG TAB PO SCH (09:00)
[2020-11-28] MEDS ORDERED: ATORVASTATIN 80 MG TAB PO SCH (09:00)
[2020-11-28] MEDS ORDERED: ATORVASTATIN 40 MG TAB PO SCH (09:00)
== END 2020-11-27 18:33 | disposition home or self-care (01) ==
LOC: EC 15:49 → 3SCARD 17:50
PROVIDERS: ADMIT Hospitalist; ATTEND Hospitalist
DX: R55 Syncope and collapse (principal); F41.9 Anxiety disorder, unspecified; R79.89 Other specified abnormal findings of blood chemistry; R00.0 Tachycardia, unspecified; R00.2 Palpitations; I25.10 Atherosclerotic heart disease of native coronary artery without angina pectoris; K21.9 Gastro-esophageal reflux disease without esophagitis; E78.5 Hyperlipidemia, unspecified; I10 Essential (primary) hypertension; K76.0 Fatty (change of) liver, not elsewhere classified; E66.9 Obesity, unspecified; Z68.41 Body mass index [BMI] 40.0-44.9, adult; D72.829 Elevated white blood cell count, unspecified; I21.4 Non-ST elevation (NSTEMI) myocardial infarction; H91.90 Unspecified hearing loss, unspecified ear; Z87.19 Personal history of other diseases of the digestive system; Z79.82 Long term (current) use of aspirin; Z79.899 Other long term (current) drug therapy; Z80.8 Family history of malignant neoplasm of other organs or systems; Z82.49 Family history of ischemic heart disease and other diseases of the circulatory system; Z83.79 Family history of other diseases of the digestive system
CPT/HCPCS: 96361 ×2; 96366 ×2; 96376; 96365; 99285; 36415; 93005; 80061; 80053; 84443; 83735; 84484; 85025 ×2; 85610; 85730 ×2; 81003; 87635; 71046; G0378 ×2; J2250; J1644 ×3; J2001; Q9967; 93458

== ENCOUNTER → 2022-01-06 | Outpatient (CLI) | payer BC ==
--- NOTE | 2022-01-06 11:15 | FL ---
EXAMINATION TYPE: FL UGI air DATE OF EXAM: 01/06/2022 COMPARISON: Prior esophagram May 20, 2019 HISTORY: Right upper quadrant and epigastric pain. History of hiatal hernia. TECHNIQUE: A double contrast UGI study is performed. A total of 48 seconds of fluoroscopic time was utilized during procedure and 34 images obtained. FINDINGS: [employer] image of the abdomen shows no gross abnormality. The esophagus shows satisfactory motility and emptying into the stomach. Mild dysmotility seen during prone drinking. No diverticulum. Small sliding-type hiatal hernia is redemonstrated. No intraluminal mass or stricture. The stomach shows satisfactory distensibility and peristalsis. Poor coating of the gastric folds with mild to moderate prominence in the fundus. No evidence of any intraluminal mass or ulcer disease. M oderate gastroesophageal reflux was seen during real time performance of this study. The duodenal bulb, sweep, and proximal small bowel loops are unremarkable. IMPRESSION: Small side type hiatal hernia redemonstrated. Mild fundal gastritis. Moderate distal jourdan roesophageal reflux.
--- NOTE | 2022-01-06 11:49 | US ---
EXAMINATION TYPE: US abdomen complete DATE OF EXAM: 01/06/2022 COMPARISON: US abdomen May 20, 2019 CLINICAL HISTORY: R10.11 RUQ PAIN. EXAM MEASUREMENTS: Liver Length: 15.4 cm Gallbladder Wall: 0.2 cm CBD: 0.2 cm Spleen: 9.6 cm Right Kidney: 12.1 x 4.3 x 5.0 cm Left Kidney: 11.4 x 5.1 x 5.1 cm Morbidly obese patient. Technically difficult study. Pancreas: Obscured by bowel gas Liver: Increased attenuation, decreased visualization of vessels suggestive of fatty infiltrate Gallbladder: wnl Evidence for sonographic Burt's sign: no CBD: wnl Spleen: wnl Right Kidney: No hydronephrosis or masses seen Left Kidney: No hydronephrosis or masses seen Upper IVC: wnl Abd Aorta: wnl as seen, bifurcation obscured by overlying bowel gas Suboptimal study due to large body habitus. The visualized liver is heterogeneously hyperechoic simil ar to prior. Evaluation for focal masses suboptimal due to the heterogeneity. The intrahepatic portio n of the IVC and visualized abdominal aorta are within normal limits. There is no evidence of cholel ithiasis. Common bile duct is unremarkable. Suboptimal evaluation of pancreas due to body habitus. The spleen is unremarkable. Kidneys are symmetric and free of hydronephrosis. No renal lesions are seen. IMPRESSION: Probable diffuse fatty infiltration of liver redemonstrated. No acute findings are eviden t. No significant change from prior.
== END | disposition home or self-care (01) ==
LOC: RADUSWWP 08:59
PROVIDERS: ATTEND Family Medicine
DX: K44.9 Diaphragmatic hernia without obstruction or gangrene (principal); K21.9 Gastro-esophageal reflux disease without esophagitis; K29.70 Gastritis, unspecified, without bleeding; E66.01 Morbid (severe) obesity due to excess calories
CPT/HCPCS: 74246; 76700

== ENCOUNTER → 2022-04-26 | Outpatient (CLI) | payer BC ==
--- NOTE | 2022-04-26 14:15 | CT ---
EXAMINATION TYPE: CT abdomen pelvis wo con CT DLP: 1476.30 mGycm, Automated exposure control for dose reduction was used. DATE OF EXAM: 04/26/2022 1:57 PM COMPARISON: CT abdomen pelvis most recent from CLINICAL INDICATION:Male, 56 years old with history of R10.32, Z87.442, R31.29; Left lower quadrant p ain, history of renal calculi and microhematuria TECHNIQUE: Axial CT of the abdomen and pelvis. Sagittal and coronal reformats were created on a [employer] workstation. Contrast used: None Oral contrast used: without Oral Contrast FINDINGS: LOWER CHEST: Unremarkable ABDOMEN LIVER: Diffusely hypoattenuating parenchyma. GALLBLADDER AND BILE DUCTS: Unremarkable. PANCREAS: Fatty atrophy changes of the pancreas parenchyma. SPLEEN: Unremarkable. ADRENAL GLANDS: Unremarkable. KIDNEYS AND URETERS: No evidence of hydronephrosis or renal calculus. Bilateral renal cysts. PELVIS BLADDER: Unremarkable REPRODUCTIVE: Unremarkable. ABDOMEN & PELVIS STOMACH AND BOWEL: No evidence of bowel obstruction. Few scattered clonic diverticula. The colon is r elatively nondistended. No inflammation changes to suggest acute infectious process. Appendix is norm al. PERITONEUM: No evidence of pneumoperitoneum or free fluid. VASCULATURE: Mild atherosclerotic calcifications are present throughout the abdominal aorta and its b ranches. No evidence of aortic aneurysm. MUSCULOSKELETAL: No acute osseous abnormalities. Mild disc degeneration changes are present throughou t the thoracolumbar spine. LYMPH NODES: No gross evidence for lymphadenopathy. SOFT TISSUE/ABDOMINAL WALL: Bilateral fat filled lingula hernias. Fat-containing umbilical hernia. IMPRESSION: No evidence for acute intra-abdominal process. No renal calculi, no evidence for diverticulitis.
== END | disposition home or self-care (01) ==
LOC: RADCTMAIN 13:28
PROVIDERS: ATTEND Family Medicine
DX: R10.32 Left lower quadrant pain (principal); R31.29 Other microscopic hematuria; Z87.442 Personal history of urinary calculi
CPT/HCPCS: 74176

== ENCOUNTER 2022-06-30 08:29 | Day surgery (SDC) | payer BC ==
[~2022-06-30 08:29] MED LIST changes: +LIDOCAINE 1% (10MG/ML) FOR IV START INTRADERMA PRN; -LIDOCAINE 1% 20 ML VIAL (10MG/ML) FOR IV START INTRADERMA PRN
[2022-06-30 09:15] VITALS: TEMP 97.9
[2022-06-30] MEDS ORDERED: LACTATED RINGERS 1,000 ML IV ONE (09:15)
[2022-06-30] MEDS ORDERED: PROPOFOL 10 MG/ML 20 ML VIAL IV ONE (09:35)
--- NOTE | 2022-06-30 09:38 | P.GSHP ---
History of Present Illness H&P Date: 06/30/22 Chief Complaint: GI bleed Is a 56-year-old male with history of GI bleed. Patient presents today for colonoscopy. Past Medical History Past Medical History: Coronary Artery Disease (CAD), Chest Pain / Angina, GERD/Reflux, Hearing Disorder / Deafness, Hyperlipidemia, Hypertension, Liver Disease Additional Past Medical History / Comment(s): Pancreatitis. Hx of "fatty liver".Hx of 40% blockage of Coronary artery per CT scan. [place] hearing aids. abdominal pain for awhile. arthritis hands and hips. History of Any Multi-Drug Resistant Organisms: None Reported Past Surgical History: Back Surgery Past Anesthesia/Blood Transfusion Reactions: No Reported Reaction Smoking Status: Never smoker - Past Family History Mother Family Medical History: Pulmonary Embolus Additional Family Medical History / Comment(s): fatty liver Brother(s) Family Medical History: Cancer Additional Family Medical History / Comment(s): Skin CA. Father Family Medical History: COPD, Coronary Artery Disease (CAD) Medications and Allergies Home Medications Medication Instructions Recorded Confirmed Type Nitroglycerin Sl Tabs [Nitrostat] 0.4 mg SUBLINGUAL Q5M PRN 09/23/16 06/30/22 History Aspirin 81 mg PO DAILY #90 tab 11/27/20 06/30/22 Rx Atorvastatin [Lipitor] 40 mg PO DAILY #90 tab 11/27/20 06/30/22 Rx Metoprolol Tartrate [Lopressor] 25 mg PO BID #180 tab 11/27/20 06/30/22 Rx lisinopriL [Zestril] 10 mg PO DAILY #90 tab 11/27/20 06/30/22 Rx Unk Multi Vitamin 1 tab PO DAILY 06/28/22 06/30/22 History Allergies Allergy/AdvReac Type Severity Reaction Status Date / Time No Known Allergies Allergy Verified 06/30/22 09:10 Surgical - Exam Vital Signs Temp Pulse Resp BP Pulse Ox 97.9 F 75 17 131/64 97 06/30/22 09:14 06/30/22 09:14 06/30/22 09:14 06/30/22 09:14 06/30/22 09:14 - General well developed, well nourished, no distress - Eyes PERRL - ENT normal pinna - Neck no masses - Respiratory normal expansion - Cardiovascular Rhythm: regular - Abdomen Abdomen: soft, non tender Assessment and Plan Assessment: GI bleed. We'll perform colonoscopy
--- NOTE | 2022-06-30 09:49 | P.OP ---
Date of Procedure: 06/30/22 Preoperative Diagnosis: History of GI bleed Postoperative Diagnosis: Hemorrhoids Diverticulosis Procedure(s) Performed: Colonoscopy Anesthesia: MAC Pathology: none sent Condition: stable Disposition: PACU Description of Procedure: Patient's placed on the endoscopy table in the lateral position. He received IV sedation. Digital rectal exam was performed which revealed internal hemorrhoids. The flexible colonoscope was then placed patient anus and passed throughout the entire colon. The ileocecal valve was visualized. The patient had a poor colon prep. His large amount liquid stool seen in the right colon. The visualized mucosa appeared normal. The transverse colon and descending colon had a few scattered diverticula. There was a few more diverticula seen in the sigmoid colon the scope was then brought back the rectum this appeared normal. Scope withdrawn for patient. There is no evidence of any GI bleed today. His presumed patient may have had previous rectal bleeding from hemorrhoids.
[2022-06-30 10:06] VITALS: BP 122/78; PULSE 67; RESP 18
== END 2022-06-30 10:20 | disposition home or self-care (01) ==
LOC: ORWHC2ENDO 08:29
PROVIDERS: ATTEND Surgery
DX: K64.8 Other hemorrhoids (principal); K57.32 Diverticulitis of large intestine without perforation or abscess without bleeding; I25.10 Atherosclerotic heart disease of native coronary artery without angina pectoris; K21.9 Gastro-esophageal reflux disease without esophagitis; E78.5 Hyperlipidemia, unspecified; I10 Essential (primary) hypertension; H91.90 Unspecified hearing loss, unspecified ear; K76.9 Liver disease, unspecified; K85.90 Acute pancreatitis without necrosis or infection, unspecified; M16.0 Bilateral primary osteoarthritis of hip; M19.042 Primary osteoarthritis, left hand; M19.041 Primary osteoarthritis, right hand; Z98.890 Other specified postprocedural states; Z83.6 Family history of other diseases of the respiratory system; Z84.89 Family history of other specified conditions; Z80.8 Family history of malignant neoplasm of other organs or systems; Z82.5 Family history of asthma and other chronic lower respiratory diseases; Z82.49 Family history of ischemic heart disease and other diseases of the circulatory system; Z79.82 Long term (current) use of aspirin; Z79.899 Other long term (current) drug therapy
CPT/HCPCS: 45378; J2704